=== PATIENT | male | born 1985 | race Caucasian/White ===

== ENCOUNTER 2019-11-28 09:42 | Emergency (ER) | payer MEDICAID ==
--- NOTE | 2019-11-28 11:33 | ED Physician Documentation ---
PD HPI UPPER EXT INJURY - Stated complaint Stated Complaint: L ARM LAC - Chief complaint Chief Complaint: Laceration - History obtained from History obtained from: Patient - History of Present Illness Location: Left, Forearm. No: Wrist Type of injury: Laceration (cutting food with knife and it slipped, causing jab laceration to dorsum left forearm. Pain with ROM and some local swelling. No numbness.) Where injury occurred: Home Timing - onset: Today (just [employer]) Timing - details: Abrupt onset, Still present (not bleeding after direct pressure.) Improved by: Dressing Worsened by: Moving, Palpating Associated symptoms: Other (hurts for finger and wrist extension). No: Weakness, Numbness Similar symptoms before: Has not had sx before Review of Systems Skin: reports: Laceration (s) Neurologic: denies: Focal weakness, Numbness PD PAST MEDICAL HISTORY - Past Medical History Cardiovascular: None Respiratory: None Neuro: Other Endocrine/Autoimmune: None, HyPOthyroidism GI: GERD : None HEENT: None Psych: Anxiety Musculoskeletal: None Derm: None - Past Surgical History Past Surgical History: Yes General: Bowel surgery - Allergies Allergies/Adverse Reactions: Allergies Allergy/AdvReac Type Severity Reaction Status Date / Time Opioids - Morphine Analogues Allergy Emesis Verified 11/28/19 09:56 - Social History Does the pt smoke?: No Smoking Status: Never smoker Does the pt drink ETOH?: No - Immunizations Immunizations are current?: No Immunizations: TDAP >10years/unknown PD ED PE NORMAL - Vitals Vital signs reviewed: Yes - General General: Alert and oriented X 3, No acute distress, Well developed/nourished - Derm Derm: Normal color, Warm and dry - Extremities Extremities: Other (dorsum left forearm with 1.5 cm laceration vertically oriented with local swelling. It does appear to go into muscle. He is able to firmly extend fingers and wrist against resistance. Normal sensation in back of hand and fingers. ) - Neuro Neuro: Alert and oriented X 3, No motor deficit, No sensory deficit Results - Vitals Vitals: Oxygen O2 Source Room air Procedures - Laceration (location) left forearm Length in cm: 2 Wound type: Linear, Into muscle, Clean Neurovascular status: Sensory intact, Motor intact, Vascular intact Tendon involvement: Tendon intact Anesthesia: Lidocaine 1% with epi Wound Preparation: Wound explored, To the base. No: FB identified Skin layer closure: Nylon, Running, Size #-0 - enter number (4), Sutures - enter # (8) Other: Patient tolerated well, No complications, Neurovascular intact, Dressing applied, Tetanus UTD Complexity: Simple PD MEDICAL DECISION MAKING - ED course Complexity details: considered differential (some pain with wrist and fingers extension but still good strength c/w injury into muscle but not lac tendons.), d/w patient Departure - Departure Disposition: 01 Home, Self Care Clinical Impression: Laceration of forearm Qualifiers: Encounter type: initial encounter Laterality: left Qualified Code(s): S51.812A - Laceration without foreign body of left forearm, initial encounter Condition: Stable Record reviewed to determine appropriate education?: Yes Instructions: ED Laceration Hand Comments: It is okay to wash and shower. Clean off the wound twice a day with soap and water, or peroxide and water. Apply some antibiotic ointment to it to keep it moist. Also to watch for signs of infection such as purulence, redness or increasing pain. Return to your primary care or the ER at the specified time for suture removal. Suture removal 8 to 10 days. Tylenol or ibuprofen as needed for pains. Regular use of the hand and wrist are okay. Discharge Date/Time: 11/28/19 12:55
[2019-11-28] MEDS ORDERED: IBUPROFEN 600 MG TABLET PO STA (12:33)
[2019-11-28 12:55] VITALS: BP 114/86
== END 2019-11-28 12:55 | disposition home or self-care (01) ==
LOC: ED 09:42
DX: E03.9 Hypothyroidism, unspecified (principal); S51.812A Laceration without foreign body of left forearm, initial encounter; W26.0XXA Contact with knife, initial encounter; Y93.G1 Activity, food preparation and clean up; Y92.009 Unspecified place in unspecified non-institutional (private) residence as the place of occurrence of the external cause
CPT/HCPCS: 12001; 99282

== ENCOUNTER 2019-12-08 09:43 | Emergency (ER) | payer MEDICAID ==
[2019-12-08 09:56] VITALS: BP 125/69
--- NOTE | 2019-12-08 10:11 | ED Physician Documentation ---
PD HPI WOUND RECHECK - Stated complaint Stated Complaint: SUTURE REMOVAL - Chief complaint Chief Complaint: Wound - Histroy obtained from History obtained from: Patient - History of Present Illness Location: Left Uppper Extremity Timing - onset: How many days ago (10) Associated symptoms: No: Fever, Redness, Swelling, Drainage, Pain Similar symptoms before: Diagnosis (laceration) Recently seen: Emergency Dept - Additional information Additional information: 34-year-old male stabbed himself in the left forearm with a knife 10 days ago he had sutures placed by Dr. Manuel. He has had no complaints, the RN has removed the sutures and the patient's skin appears healed. Review of Systems Constitutional: denies: Fever Eyes: denies: Decreased vision Ears: denies: Ear pain Nose: denies: Congestion Throat: denies: Sore throat Respiratory: denies: Cough GI: denies: Vomiting Skin: reports: Laceration (s) PD PAST MEDICAL HISTORY - Past Medical History Cardiovascular: None Respiratory: None Neuro: Other Endocrine/Autoimmune: None, HyPOthyroidism GI: GERD : None HEENT: None Psych: Anxiety Musculoskeletal: None Derm: None - Past Surgical History Past Surgical History: Yes General: Bowel surgery - Allergies Allergies/Adverse Reactions: Allergies Allergy/AdvReac Type Severity Reaction Status Date / Time Opioids - Morphine Analogues Allergy Emesis Verified 12/08/19 09:51 - Social History Does the pt smoke?: No Smoking Status: Never smoker Does the pt drink ETOH?: No - Immunizations Immunizations are current?: No Immunizations: TDAP >10years/unknown PD ED PE NORMAL - Vitals Vital signs reviewed: Yes (normal ) - General General: Alert and oriented X 3, No acute distress, Well developed/nourished - HEENT HEENT: Atraumatic - Respiratory Respiratory: No respiratory distress - Derm Derm: Normal color, Warm and dry, No rash - Extremities Extremities: No deformity, No edema, Other (healing wound to the left dorsal forearm is without signs of infection or dehisence. distal n/v intact) - Neuro Neuro: Alert and oriented X 3, timber hand 2-12 intact, No motor deficit, No sensory deficit, Normal speech Eye Opening: Spontaneous Motor: Obeys Commands Verbal: Oriented GCS Score: 15 - Psych Psych: Normal mood, Normal affect Results - Vitals Vitals: Vital Signs - 24 hr 12/08/19 09:51 Temperature 36.9 C Heart Rate 76 Respiratory 15 Rate Blood Pressure 125/69 O2 Saturation 99 Oxygen O2 Source Room air PD MEDICAL DECISION MAKING - ED course Complexity details: considered differential, d/w patient ED course: 34-year-old male presents for suture removal sutures are removed wound is healed. Departure - Departure Disposition: 01 Home, Self Care Clinical Impression: Visit for suture removal Condition: Stable
== END 2019-12-08 10:00 | disposition home or self-care (01) ==
LOC: ED 09:43
DX: S51.812D Laceration without foreign body of left forearm, subsequent encounter (principal); W26.0XXD Contact with knife, subsequent encounter
CPT/HCPCS: 99281

== ENCOUNTER 2023-02-24 20:38 | Emergency (ER) | payer MEDICAID ==
[2023-02-24 20:44] VITALS: BP 150/88
[2023-02-24] MEDS ORDERED: AMOX/CLAV 875 MG/125 MG TABLET PO STA (20:49)
--- NOTE | 2023-02-24 20:50 | ED Physician Documentation ---
PD HPI LOWER EXT INJURY - Stated complaint Stated Complaint: RT SIDE DOG BITE - Chief complaint Chief Complaint: Wound - History obtained from History obtained from: Patient - Additional information Additional information: He was walking and a leashed dog jumped at him and bit him through pants with 2 puncture wounds on the right buttock. This happened just prior to arrival. Tetanus is up-to-date. Dog's immunizations are unknown. PD PAST MEDICAL HISTORY - Past Medical History Cardiovascular: None Respiratory: None Neuro: Other Endocrine/Autoimmune: None, HyPOthyroidism GI: GERD : None HEENT: None Psych: Anxiety Musculoskeletal: None Derm: None - Past Surgical History Past Surgical History: Yes General: Bowel surgery - Present Medications Home Medications: Ambulatory Orders Medication Instructions Recorded Confirmed Amox/Clav 875/125 [Augmentin] 1 each PO Q12H #5 tablet 02/24/23 - Allergies Allergies/Adverse Reactions: Allergies Allergy/AdvReac Type Severity Reaction Status Date / Time Opioids - Morphine Analogues Allergy Emesis Verified 02/24/23 20:42 - Social History Does the pt smoke?: No Smoking Status: Never smoker Does the pt drink ETOH?: No - Immunizations Immunizations are current?: No Immunizations: TDAP >10years/unknown PD ED PE NORMAL - Vitals Vital signs reviewed: Yes - General General: Alert and oriented X 3, No acute distress - Extremities Extremities: Other (On the upper right thigh posteriorly there are 2 small puncture wounds) - Neuro Neuro: Alert and oriented X 3, Normal speech Results - Vitals Vitals: Vital Signs - 24 hr 02/24/23 20:42 Temperature 36.8 C Heart Rate 80 Respiratory 16 Rate Blood Pressure 150/88 H O2 Saturation 100 Oxygen O2 Source Room air Departure - Departure Disposition: 01 Home, Self Care Clinical Impression: Dog bite of right buttock Condition: Good Record reviewed to determine appropriate education?: Yes Instructions: ED Bite Animal General Prescriptions: Amox/Clav 875/125 [Augmentin] 1 each PO Q12H #5 tablet Comments: Wash with soap and water and keep it covered with a Band-Aid. Return for signs infection including but not limited to redness, swelling, drainage, increased pain or fever.
== END 2023-02-24 21:17 | disposition home or self-care (01) ==
LOC: ED 20:38
DX: S31.815A Open bite of right buttock, initial encounter (principal); W54.0XXA Bitten by dog, initial encounter; Y93.01 Activity, walking, marching and hiking
CPT/HCPCS: 99282; 99283; A9270